=== PATIENT | female | born 2000 | race Caucasian/White ===

== ENCOUNTER 2020-05-26 22:52 | Emergency (ER) | payer OTHER ==
[~2020-05-26] VITALS: Ht 177.8 cm; Wt 77.1 kg
[2020-05-26 23:52] VITALS: BP 136/77
--- NOTE | 2020-05-27 00:13 | ER.PDOC ---
General Chief Complaint: Requesting Medical Care Stated Complaint: FOOT INJURY Time seen by MD: 00:06 Source: patient Exam Limitations: no limitations History of Present Illness Initial Comments Right foot pain for 5 days. Patient twisted it. Where: home Severity: moderate Context: twist Modifying Factors: pain on movement Past Medical History Medical History: no pertinent history Surgical History: no surgical history Family History Significant Family History: no pertinent family hx Social History Smoking: non-smoker Alcohol Use: occassionally Drug Use: none Review of Systems Constitutional: no symptoms reported EENTM: no symptoms reported Respiratory: no symptoms reported Cardiovascular: no symptoms reported Gastrointestinal: no symptoms reported Musculoskeletal: see HPI All Other Systems: Reviewed and Negative Physical Exam General Appearance: Alert, No Apparent Distress Foot: tenderness (right foot, no swelling or deformity.) Ankle: nml inspection, non-tender, nml ROM, no joint swelling, skin intact Gait: normal Neuro: sensation nml, motor nml Vascular: no vascular compromise Tendons: tendon function nml Leg/Knee/Thigh: uninjured above ankle Head/ENT: nml inspection, pharynx nml Neck/Back: nml inspection, non-tender Resp/CVS: no resp distress Abdomen: non-tender, no organomegaly Results/Orders Results/Orders Orders - STEPHANIE ABRAMS MD Xr Foot Rt (05/26/20 23:52) Vital Signs Date Time Temp Pulse Resp B/P (MAP) Pulse Ox O2 Delivery O2 Flow Rate FiO2 05/26/20 23:52 98.8 67 18 136/77 (96) 100 Room Air 05/26/20 23:52 98.8 67 18 100 05/26/20 23:52 98.8 67 18 EKG/XRAY/CT/US XRAY Comments: No acute bony abnormality of right foot ER DEPART Departure Time of Disposition: 00:09 Disposition: 01 HOME, SELF-CARE Impression: Primary Impression: Injury of foot, right Condition: Stable Referrals: PCP,UNKNOWN (PCP) PRIMARY CARE PROVIDER Additional Instructions: Ice Ibuprofen F/U with your PCP in 1 week Return to ED if worsening or concerns Duration or Time Spent with Pa: 10 min Problem Qualifiers Primary Impression: Injury of foot, right Encounter type: initial encounter Qualified Codes: S99.921A - Unspecified injury of right foot, initial encounter STEPHANIE ABRAMS MD May 27, 2020 00:13
--- NOTE | 2020-05-27 01:17 | DIREP ---
PROCEDURE:XRAY FOOT MIN 3 VWS-RT COMPARISON:None. INDICATIONS:Pain FINDINGS: BONES:Normal. JOINTS:Normal. SOFT TISSUES:Normal. OTHER:No additional findings. CONCLUSION:No visualized osseous abnormality. Dictated by: Henok Doyle DO on 05/27/2020 at 01:14 AM
== END 2020-05-27 00:27 | disposition home or self-care (01) ==
LOC: ER 22:52
DX: S99.921A Unspecified injury of right foot, initial encounter (principal); X50.9XXA Other and unspecified overexertion or strenuous movements or postures, initial encounter; Y93.89 Activity, other specified; Y92.89 Other specified places as the place of occurrence of the external cause; Y99.8 Other external cause status
CPT/HCPCS: 99284; 73630-RT

== ENCOUNTER 2020-09-01 00:05 | Emergency (ER) | payer OTHER ==
[~2020-09-01] VITALS: Ht 175.3 cm; Wt 74.8 kg
[2020-09-01 00:30] VITALS: BP 117/64
[2020-09-01 01:42] LABS: BASOPHIL % 0.2 % (0.0-0.2); EOSINOPHIL # 0.1 10^3/uL (0.0-0.2); EOSINOPHIL % 2.6 % (0.0-5.0); LYMPHOCYTES # 1.44 10^3/uL1 (1.2-5.2); LYMPHOCYTES % 33.6 % (24.0-44.0); MEAN CORP HGB 28.3 pg (26-34); MONOCYTES # 0.5 10^3/uL (0.0-0.4); MONOCYTES % 11.9 % (5.0-12.0); NEUTROPHIL # 2.2 10^3/uL (1.8-8.0); NEUTROPHILS % 51.5 % (41.0-85.0); PLATELET COUNT 213 10^3/uL (150-400); RED CELL DISTRIBUTION WIDTH 13.2 % (11.5-14.5)
[2020-09-01 01:53] LABS: BILIRUBIN,URINE NEGATIVE (NEGATIVE); UA COLOR YELLOW; UROBILINOGEN,URINE 0.2 E.U./dL (0.2)
[2020-09-01 03:24] VITALS: BP 116/73
--- NOTE | 2020-09-01 04:15 | DIREP ---
PROCEDURE:US OB 1ST TRI - TV COMPARISON:None. INDICATIONS:Bleeding During TECHNIQUE:Transabdominal and endovaginal pelvic ultrasound images were obtained. Endovaginal images were obtained to optimally evaluate the and maternal adnexal structures. FINDINGS: POLE: [place]-rump length measures 7.03 cm consistent with gestational age of 13 weeks, 2 days. CARDIAC ACTIVITY:Confirmed at 154 beats per minute. UTERUS:11.7 x 8.0 x 9.4 cm. OVARIES:The ovaries appear normal; the right measures 3.6 x 2.3 x 2.3 cm while the left measures 3.3 x 2.0 x 1.9 cm. CUL-DE-SAC:Normal. OTHER: Survey of the placental anatomic structure and amniotic fluid could not be performed because of gestational age (<14 weeks). CONCLUSION: 1. Single living intrauterine noted with gestational age estimated at 13 weeks, 2 days. Dictated by: Spike Ballard M.D. on 09/01/2020 at 04:11 AM
[2020-09-01 04:22] VITALS: BP 118/73
--- NOTE | 2020-09-01 04:24 | ER.PDOC ---
General Chief Complaint: less 20 wks Stated Complaint: >20 WKS PREG,BLEEDING Time seen by MD: 00:19 Source: patient, family Exam Limitations: no limitations History of Present Illness Initial Comments pt is approx 14 wks and noticed some vaginal bleeding when she wiped after using toilet. She wiped again and htere was some small blood clots. she has not noted any blood since then. she has not had any pain/cramping. this is her first . Timing/Duration: yesterday Severity/Quality: mild Vaginal Bleed: spotting Allergies: Coded Allergies: Penicillins (Verified Allergy, Severe, Hives, 05/27/20) bee venom protein (honey bee) (Verified Allergy, Severe, 05/27/20) hydrocodone (Verified Allergy, Severe, Hives , 05/27/20) Past Medical History Medical History: no pertinent history, other () Surgical History: no surgical history Social History Alcohol Use: none Drug Use: none Review of Systems Constitutional: no symptoms reported EENTM: no symptoms reported Respiratory: no symptoms reported Cardiovascular: no symptoms reported Gastrointestinal: no symptoms reported Genitourinary: see HPI Musculoskeletal: no symptoms reported Skin: no symptoms reported Psychiatric/Neurological: no symptoms reported Hematologic/Lymphatic: no symptoms reported Physical Exam General Appearance: No Apparent Distress, WD/WN EENT: eyes nml inspection, nml ENT inspection, pharynx nml Neck: nml inspection, non-tender Cardiovascular/Respiratory: Regular Rate, Rhythm, No M/R/G, Normal Peripheral Pulses, No JVD, Normal Breath Sounds, No Respiratory Distress Abdomen: Normal Bowel Sounds, Non Tender, Soft, No Organomegaly, No Pulsatile Mass Back: nml inspection Extremities: Normal Range of Motion, Non-Tender, Normal Inspection, No Pedal Edema, No Calf Tenderness, Normal Capillary Refill 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, No Motor/Sensory Deficits, Alert, Normal Mood/Affect, Oriented x 3 Skin: Normal Color, Warm/Dry Results/Orders Results/Orders Orders - NARENDRA HONG MD Cbc With Auto Diff (09/01/20 01:17) Comprehensive Metabolic Panel (09/01/20 01:17) Abo/Rh Type (09/01/20 01:17) Us Tv-Ob (09/01/20 01:17) Urinalysis (09/01/20 01:17) Hcg, Quantitative (09/01/20 01:17) Us Preg Before 14 Wks (09/01/20 02:11) Vital Signs Date Time Temp Pulse Resp B/P (MAP) Pulse Ox O2 Delivery O2 Flow Rate FiO2 09/01/20 04:22 97.9 70 16 118/73 (88) 100 Room Air 09/01/20 03:24 97.9 69 16 116/73 (87) 100 Room Air 09/01/20 02:30 97.9 67 16 100 Room Air 09/01/20 01:30 97.9 68 16 100 Room Air 09/01/20 00:30 97.9 61 16 99 09/01/20 00:30 97.9 61 16 117/64 (81) 99 Room Air 09/01/20 00:30 97.9 61 16 Laboratory Tests Test 09/01/20 01:10 09/01/20 01:33 Urine Collection Type CCMS Urine Color YELLOW Urine Appearance CLEAR Urine Bilirubin NEGATIVE (NEGATIVE) Urine Ketones NEGATIVE (NEGATIVE) Urine Specific [place] >=1.030 (1.005-1.030) Urine pH 5.5 (4.5-8.0) Urine Protein NEGATIVE (NEGATIVE) Urine Urobilinogen 0.2 E.U./dL (0.2) Urine Nitrate NEGATIVE (NEGATIVE) Urine Leukocyte Esterase NEGATIVE (NEGATIVE) Urine Glucose (Auto)(UA) NEGATIVE (NEGATIVE) Urine Blood MODERATE (NEGATIVE) H Urine RBC 2-5 RBC/HPF (NONE SEEN) Urine WBC 0-2 WBC/HPF (0-2) Urine Squamous Epithelial Cells MODERATE #/HPF (FEW) Urine Bacteria FEW (NONE SEEN) H White Blood Count 4.3 10^3/uL (4.5-12.5) L Red Blood Count 4.00 10^6/uL (4.00-5.20) Hemoglobin 11.3 g/dL (12.4-14.8) L Hematocrit 33.3 % (36.0-46.0) L Mean Corpuscular Volume 83.3 fL (78-100) Mean Corpuscular Hemoglobin 28.3 pg (26-34) Mean Corpuscular Hemoglobin Concent 33.9 g/dL (33-36.5) Red Cell Distribution Width 13.2 % (11.5-14.5) Platelet Count 213 10^3/uL (150-400) Mean Platelet Volume 10.5 fL (7.8-11.0) Neutrophils (%) (Auto) 51.5 % (41.0-85.0) Lymphocytes (%) (Auto) 33.6 % (24.0-44.0) Monocytes (%) (Auto) 11.9 % (5.0-12.0) Neutrophils # (Auto) 2.2 10^3/uL (1.8-8.0) Lymphocytes # (Auto) 1.44 10^3/uL1 (1.2-5.2) Monocytes # (Auto) 0.5 10^3/uL (0.0-0.4) H Absolute Immature Granulocyte (auto 0.01 10^3 u/L (0-2) Absolute Eosinophils (auto) 0.1 10^3/uL (0.0-0.2) Immature Granulocytes % 0.20 % (0.00-0.50) Eosinophils % 2.6 % (0.0-5.0) Basophils % 0.2 % (0.0-0.2) Basophils # 0.0 10^3/uL (0.0-0.1) Sodium Level 140 mmol/L (132-145) Potassium Level 3.9 mmol/L (3.6-5.2) Chloride Level 105.0 mmol/L (96-109) Carbon Dioxide Level 22.0 mmol/L (20.0-32) Anion Gap 16.9 Blood Urea Nitrogen 10 mg/dL (7-18) Creatinine 0.79 mg/dL (0.59-1.40) Estimated GFR () 112.3 (>/=60) Est GFR (CKD-EPI)(Non-Afr [place]) 92.8 (>/=60) BUN/Creatinine Ratio 12.0 Glucose Level 82 mg/dL (70-110) Calcium Level 9.0 mg/dL (8.4-10.5) Total Bilirubin 0.1 mg/dL (0.2-1.0) L Aspartate Amino Transferase (AST) 12 U/L (0-35) Alanine Aminotransferase (ALT) 17 U/L (12-78) Alkaline Phosphatase 65 U/L (50-136) Total Protein 6.7 g/dL (6.4-8.2) Albumin 3.2 g/dL (3.4-5.0) L Globulin 3.5 Albumin/Globulin Ratio 0.914 Human Chorionic Gonadotropin, Quant 72338 mIU/mL Blood Bank Test 09/01/20 01:33 Blood Type O POSITIVE Progress Progress discussed with pt the US results that show measurements of about 13w and 2 days and shows normal features. also discussed labs that show no UTI and anemia. recommended that she get in right away with [employer] system administrator for further assessment as needed and to discuss the anemia. ER DEPART Departure Time of Disposition: 04:22 Disposition: 01 HOME, SELF-CARE Impression: Primary Impression: Vaginal bleeding Additional Impression: Vaginal bleeding during Condition: Stable Referrals: PCP,UNKNOWN (PCP) PRIMARY CARE PROVIDER Additional Instructions: call [facility] in morning to get f/u right away about bleeding. also discuss anemia Duration or Time Spent with Pa: 25 Problem Qualifiers NARENDRA HONG MD Sep 01, 2020 04:24
== END 2020-09-01 04:30 | disposition home or self-care (01) ==
LOC: ER 00:05
DX: O20.9 Hemorrhage in early pregnancy, unspecified (principal); Z3A.14 14 weeks gestation of pregnancy; Z88.0 Allergy status to penicillin; Z88.5 Allergy status to narcotic agent; Z91.030 Bee allergy status
CPT/HCPCS: 36415; 76801; 76817; 80053; 81000; 81003; 84702; 85025; 86900; 99284; 99285